=== PATIENT | male | born 1990 | race Caucasian/White ===

== ENCOUNTER → 2016-10-25 | Outpatient (REF) | payer OTHER ==
[2016-10-26 14:21] LABS: CONTROL LINE INT CTR LINE PRESENT; HIV SCRN NEGATIVE (NEGATIVE); HIV SCRN1 NEGATIVE (NEGATIVE)
== END ==
LOC: M SFHCLERA 13:58
PROVIDERS: ATTEND Family Medicine
DX: Z11.4 Encounter for screening for human immunodeficiency virus [HIV] (principal); Z11.3 Encounter for screening for infections with a predominantly sexual mode of transmission

== ENCOUNTER → 2016-11-13 | Outpatient (REF) | payer OTHER | LOC: M LAB REF 12:03 | PROVIDERS: ATTEND Physician Assistant Medical | DX: J02.9 Acute pharyngitis, unspecified (principal) ==

== ENCOUNTER 2017-03-02 19:51 | Emergency (ER) | payer OTHER ==
[~2017-03-02] VITALS: Ht 185.4 cm; Wt 140.0 kg
[2017-03-02] MEDS ORDERED: CITA20TA4 (20:10)
[2017-03-02] MEDS ORDERED: VALA1TAB (20:10)
[2017-03-02] MEDS ORDERED: NS 1,000 ML IV ONE (20:45)
[2017-03-02] MEDS ORDERED: KETOROLAC 30 MG/ML VIAL (J1885) IV ONE (20:45)
[2017-03-02] MEDS ORDERED: ONDANSETRON 4MG/2ML VIAL (J2405) IV ONE (21:00)
[2017-03-02 21:09] LABS: BASO % 0.2 % (0.0-1.0); EOS # 0.2 K/mm3 (0.0-0.50); EOS % 1.7 % (0.0-3.0); LARGE UNSTAINED CELL # 0.1 K/mm3 (0.0-0.4); LARGE UNSTAINED CELL % 0.6 % (0.0-4.0); LYMPH # 1.2 K/mm3 (1.5-6.5); MEAN CORPUSCULAR HEMOGLOBIN 31.5 pg (27.0-33.0); MEAN CORPUSCULAR HGB CONC 34.7 g/dl (32.0-36.5); MEAN CORPUSCULAR VOLUME 90.8 fl (80.0-96.0); MONO # 0.3 K/mm3 (0.0-0.8); MONO % 3.1 % (0.0-5.0); NEUTROPHILS # 8.8 K/mm3 (1.8-7.7); NEUTROPHILS % 83.4 % (36.0-66.0); PLATELET COUNT, AUTOMATED 224 k/mm3 (150-450); RED CELL DISTRIBUTION WIDTH 12.5 % (11.5-14.5); WHITE BLOOD COUNT 10.6 K/mm3 (4.0-10.0)
[2017-03-02] MEDS ORDERED: SIME1CAP5 PO (22:04)
[2017-03-02] MEDS ORDERED: ZOFR4TAB3 PO (22:04)
[2017-03-02 22:46] VITALS: BP 150/93
[2017-03-02 22:51] LABS: ALBUMIN 3.9 GM/DL (3.2-5.2); ALBUMIN/GLOBULIN RATIO 1.22 (1.00-1.93); ALKALINE PHOSPHATASE 104 U/L (45-117); ALT/SGPT 47 U/L (12-78); AMYLASE 21 U/L (25-115); ANION GAP 7 MEQ/L (8-16); AST/SGOT 21 U/L (15-37); BILIRUBIN,DIRECT 0.1 MG/DL (0.0-0.2); BILIRUBIN,TOTAL 0.5 MG/DL (0.2-1.0); BLOOD UREA NITROGEN 11 MG/DL (7-18); CALCIUM LEVEL 8.7 MG/DL (8.5-10.1); CARBON DIOXIDE LEVEL 27 MEQ/L (21-32); CHLORIDE LEVEL 107 MEQ/L (98-107); CREATININE FOR GFR 0.85 MG/DL (0.70-1.30); GLOMERULAR FILTRATION RATE > 60.0 (>60); GLUCOSE, FASTING 92 MG/DL (70-105); POTASSIUM SERUM 4.2 MEQ/L (3.5-5.1); SODIUM LEVEL 141 MEQ/L (136-145); TOTAL PROTEIN 7.1 GM/DL (6.4-8.2)
== END 2017-03-02 23:06 | disposition home or self-care (01) ==
LOC: M ED 20:34
DX: R10.84 Generalized abdominal pain (principal); R11.2 Nausea with vomiting, unspecified; K58.0 Irritable bowel syndrome with diarrhea; Z79.899 Other long term (current) drug therapy; Z88.0 Allergy status to penicillin; Z88.1 Allergy status to other antibiotic agents

== ENCOUNTER → 2017-04-10 | Outpatient (REF) | payer OTHER ==
[~2017-04-10] MED LIST: CITA20TA4; SIME1CAP5 PO; VALA1TAB2; ZOFR4TAB3 PO
[2017-04-10 21:01] LABS: BASO % 0.5 % (0.0-1.0); EOS # 0.2 K/mm3 (0.0-0.50); EOS % 2.1 % (0.0-3.0); LARGE UNSTAINED CELL # 0.1 K/mm3 (0.0-0.4); LARGE UNSTAINED CELL % 1.4 % (0.0-4.0); LYMPH # 1.6 K/mm3 (1.5-6.5); LYMPH % 21.8 % (24.0-44.0); MEAN CORPUSCULAR HGB CONC 35.5 g/dl (32.0-36.5); MONO # 0.4 K/mm3 (0.0-0.8); MONO % 5.6 % (0.0-5.0); NEUTROPHILS # 4.8 K/mm3 (1.8-7.7); NEUTROPHILS % 68.6 % (36.0-66.0); PLATELET COUNT, AUTOMATED 222 k/mm3 (150-450); RED CELL DISTRIBUTION WIDTH 12.4 % (11.5-14.5)
[2017-04-13 00:08] LABS: Lyme Disease IgG/IgM Antibodie <0.91 ISR (0.00-0.90); Lyme Disease IgM Ab Quantitati <0.80 index (0.00-0.79)
== END ==
LOC: M LABDRWAD 20:48 → M LAB REF 20:48
PROVIDERS: ATTEND Registered Nurse Psychiatric/Mental Health
DX: F41.1 Generalized anxiety disorder (principal)

== ENCOUNTER → 2017-04-16 | Outpatient (REF) | payer OTHER | LOC: M LABDRWAD 12:19 | PROVIDERS: ATTEND Registered Nurse Psychiatric/Mental Health | DX: F41.1 Generalized anxiety disorder (principal) ==

== ENCOUNTER → 2017-06-13 | Outpatient (REF) | payer OTHER ==
[2017-06-13 20:52] LABS: BASO % 0.2 % (0.0-1.0); EOS # 0.3 10^3/uL (0.0-0.50); EOS % 3.4 % (0.0-3.0); IMMATURE GRANULOCYTE % 0.4 % (0-0); LYMPH # 2.1 10^3/uL (1.5-6.5); LYMPH % 24.6 % (24.0-44.0); MEAN CORPUSCULAR HEMOGLOBIN 30.6 pg (27.0-33.0); MEAN CORPUSCULAR HGB CONC 33.6 g/dl (32.0-36.5); MEAN CORPUSCULAR VOLUME 91.1 fl (80.0-96.0); MONO # 0.6 10^3/uL (0.0-0.8); MONO % 7.7 % (0.0-5.0); NEUTROPHILS # 5.3 10^3/uL (1.8-7.7); NEUTROPHILS % 63.7 % (36.0-66.0); PLATELET COUNT, AUTOMATED 253 10^3/uL (150-450); RED CELL DISTRIBUTION WIDTH 12.1 % (11.5-14.5); WHITE BLOOD COUNT 8.3 10^3/uL (4.0-10.0)
[2017-06-13 20:58] LABS: ANION GAP 7 MEQ/L (8-16); BLOOD UREA NITROGEN 12 MG/DL (7-18); CALCIUM LEVEL 8.9 MG/DL (8.5-10.1); CARBON DIOXIDE LEVEL 30 MEQ/L (21-32); CHLORIDE LEVEL 102 MEQ/L (98-107); CREATININE FOR GFR 1.03 MG/DL (0.70-1.30); GLOMERULAR FILTRATION RATE > 60.0 (>60); GLUCOSE, FASTING 81 MG/DL (70-105); POTASSIUM SERUM 4.4 MEQ/L (3.5-5.1); SODIUM LEVEL 139 MEQ/L (136-145)
[2017-06-13 21:02] LABS: ADD MORPHOLOGY? NO
== END ==
LOC: M SFHCLERA 16:41
PROVIDERS: ATTEND Family Medicine
DX: R53.83 Other fatigue (principal)

== ENCOUNTER → 2017-07-26 | Outpatient (CLI) | payer OTHER ==
--- NOTE | 2017-07-26 18:25 | REP ---
PA LATERAL CHEST: 07/26/2017. Comparison: 06/08/2016. Clinical history: Chest pain, unspecified. Findings: Lung tate are adequately inflated. There is no effusion, infiltrate, atelectasis or mass. The heart, mediastinal and hilar contours are normal. Airway and aorta intact. No widening of the mediastinum. Bony thorax shows no focal lesion or compression deformity. No free air. Impression: 1. No acute cardiopulmonary disease. Signed by Greg Santos MD 07/29/2017 12:47 P
== END ==
LOC: M WUC 16:47
PROVIDERS: ATTEND Physician Assistant
DX: R07.9 Chest pain, unspecified (principal); R12 Heartburn

== ENCOUNTER → 2017-08-27 | Outpatient (CLI) | payer OTHER ==
[2017-08-27 19:58] LABS: BASO % 0.5 % (0.0-1.0); EOS # 0.2 10^3/uL (0.0-0.50); EOS % 3.1 % (0.0-3.0); IMMATURE GRANULOCYTE % 0.3 % (0-0); LYMPH # 1.9 10^3/uL (1.5-6.5); LYMPH % 29.2 % (24.0-44.0); MEAN CORPUSCULAR HEMOGLOBIN 30.3 pg (27.0-33.0); MEAN CORPUSCULAR HGB CONC 33.8 g/dl (32.0-36.5); MEAN CORPUSCULAR VOLUME 89.7 fl (80.0-96.0); MONO # 0.6 10^3/uL (0.0-0.8); MONO % 8.6 % (0.0-5.0); NEUTROPHILS # 3.7 10^3/uL (1.8-7.7); NEUTROPHILS % 58.3 % (36.0-66.0); PLATELET COUNT, AUTOMATED 242 10^3/uL (150-450); RED CELL DISTRIBUTION WIDTH 11.9 % (11.5-14.5); WHITE BLOOD COUNT 6.4 10^3/uL (4.0-10.0)
[2017-08-27 20:33] LABS: ALBUMIN 4.1 GM/DL (3.2-5.2); ALBUMIN/GLOBULIN RATIO 1.14 (1.00-1.93); ALKALINE PHOSPHATASE 109 U/L (45-117); ALT/SGPT 60 U/L (12-78); ANION GAP 7 MEQ/L (8-16); AST/SGOT 27 U/L (7-37); BILIRUBIN,TOTAL 0.3 MG/DL (0.2-1.0); BLOOD UREA NITROGEN 14 MG/DL (7-18); CALCIUM LEVEL 8.7 MG/DL (8.5-10.1); CARBON DIOXIDE LEVEL 28 MEQ/L (21-32); CHLORIDE LEVEL 105 MEQ/L (98-107); CREATININE FOR GFR 0.85 MG/DL (0.70-1.30); GLOMERULAR FILTRATION RATE > 60.0 (>60); GLUCOSE, FASTING 91 MG/DL (70-105); POTASSIUM SERUM 4.1 MEQ/L (3.5-5.1); SODIUM LEVEL 140 MEQ/L (136-145); TOTAL PROTEIN 7.7 GM/DL (6.4-8.2)
== END ==
LOC: M WUC 17:08
PROVIDERS: ATTEND Registered Nurse Psychiatric/Mental Health
DX: F41.1 Generalized anxiety disorder (principal)

== ENCOUNTER → 2017-10-07 | Outpatient (CLI) | payer OTHER | LOC: M RAD 12:29 | DX: J32.4 Chronic pansinusitis (principal) | CPT/HCPCS: 70486 ==

== ENCOUNTER → 2017-12-27 | Outpatient (REF) | payer OTHER | LOC: M SFHCLERA 16:52 | DX: R19.7 Diarrhea, unspecified (principal) | CPT/HCPCS: 87507 ==

== ENCOUNTER 2017-12-31 17:02 | Emergency (ER) | payer OTHER ==
[2017-12-31 18:19] LABS: BASO % 0.4 % (0.0-1.0); EOS # 0.2 10^3/uL (0.0-0.50); EOS % 3.2 % (0.0-3.0); HEMATOCRIT 46.2 % (42.0-52.0); HEMOGLOBIN 15.7 g/dl (13.5-17.5); IMMATURE GRANULOCYTE % 0.4 % (0-3.0); LYMPH # 2.2 10^3/uL (1.5-6.5); LYMPH % 28.6 % (24.0-44.0); MEAN CORPUSCULAR HEMOGLOBIN 30.3 pg (27.0-33.0); MEAN CORPUSCULAR VOLUME 89.2 fl (80.0-96.0); MONO # 0.5 10^3/uL (0.0-0.8); MONO % 7.2 % (0.0-5.0); NEUTROPHILS # 4.6 10^3/uL (1.8-7.7); NEUTROPHILS % 60.2 % (36.0-66.0); PLATELET COUNT, AUTOMATED 232 10^3/uL (150-450); RED BLOOD COUNT 5.18 10^6/uL (4.30-6.10); RED CELL DISTRIBUTION WIDTH 11.9 % (11.5-14.5); WHITE BLOOD COUNT 7.6 10^3/uL (4.0-10.0)
[2017-12-31 18:33] LABS: ALBUMIN 4.5 GM/DL (3.2-5.2); ALBUMIN/GLOBULIN RATIO 1.15 (1.00-1.93); ALKALINE PHOSPHATASE 122 U/L (45-117); ALT/SGPT 66 U/L (12-78); ANION GAP 5 MEQ/L (8-16); AST/SGOT 30 U/L (7-37); BILIRUBIN,DIRECT < 0.1 MG/DL (0.0-0.2); BILIRUBIN,TOTAL 0.3 MG/DL (0.2-1.0); BLOOD UREA NITROGEN 13 MG/DL (7-18); CALCIUM LEVEL 9.2 MG/DL (8.5-10.1); CARBON DIOXIDE LEVEL 31 MEQ/L (21-32); CHLORIDE LEVEL 105 MEQ/L (98-107); CREATININE FOR GFR 0.84 MG/DL (0.70-1.30); GLOMERULAR FILTRATION RATE > 60.0 (>60); GLUCOSE, FASTING 91 MG/DL (70-100); LIPASE 118 U/L (73-393); POTASSIUM SERUM 4.6 MEQ/L (3.5-5.1); SODIUM LEVEL 141 MEQ/L (136-145); TOTAL PROTEIN 8.4 GM/DL (6.4-8.2)
[2017-12-31] MEDS: NS 1,000 ML IV (18:48)
== END 2017-12-31 20:04 | disposition home or self-care (01) ==
LOC: M ED 17:02
DX: K82.9 Disease of gallbladder, unspecified (principal); R19.7 Diarrhea, unspecified; K76.0 Fatty (change of) liver, not elsewhere classified; K58.9 Irritable bowel syndrome, unspecified; Z79.899 Other long term (current) drug therapy; Z88.0 Allergy status to penicillin; Z88.8 Allergy status to other drugs, medicaments and biological substances
CPT/HCPCS: 76705

== ENCOUNTER 2018-02-18 07:22 | Day surgery (SDC) | payer OTHER ==
[2018-02-18] MEDS ORDERED: LR 1,000 ML IV ×3 (07:45→10:30)
[2018-02-18 08:13] LABS: ALBUMIN/GLOBULIN RATIO 0.95 (1.00-1.93); ALKALINE PHOSPHATASE 120 U/L (45-117); ALT/SGPT 61 U/L (12-78); ANION GAP 7 MEQ/L (8-16); AST/SGOT 27 U/L (7-37); BILIRUBIN,TOTAL 0.4 MG/DL (0.2-1.0); BLOOD UREA NITROGEN 13 MG/DL (7-18); CALCIUM LEVEL 9.1 MG/DL (8.5-10.1); CARBON DIOXIDE LEVEL 28 MEQ/L (21-32); CHLORIDE LEVEL 105 MEQ/L (98-107); CREATININE FOR GFR 0.93 MG/DL (0.70-1.30); GLOMERULAR FILTRATION RATE > 60.0 (>60); GLUCOSE, FASTING 90 MG/DL (70-100); POTASSIUM SERUM 4.5 MEQ/L (3.5-5.1); SODIUM LEVEL 140 MEQ/L (136-145); TOTAL PROTEIN 8.2 GM/DL (6.4-8.2)
[2018-02-18] MEDS ORDERED: MIDAZOLAM INJ 2 MG/2 ML VIAL (J2250) As Ordered (08:54)
[2018-02-18] MEDS ORDERED: PROPOFOL 200 MG/20 ML VIAL As Ordered (08:54)
[2018-02-18] MEDS ORDERED: fentaNYL 250 MCG/5 ML INJECTION (J3010) As Ordered (08:54)
[2018-02-18] MEDS ORDERED: LIDOCAINE 2% INJ 100 MG/5 ML SDV (FOR ANES.) As Ordered (08:54)
[2018-02-18] MEDS ORDERED: ROCURONIUM BROMIDE 50 MG/5 ML VIAL As Ordered ×2 (08:54→09:04)
[2018-02-18] MEDS: BUPIVACAINE/EPIN 0.5% 30 ML VIAL As Ordered (09:05)
[2018-02-18] MEDS ORDERED: dexameTHASONE 4 MG/ML 1ML VIAL (J1100) As Ordered ×2 (09:15)
[2018-02-18] MEDS ORDERED: ONDANSETRON 4MG/2ML VIAL (J2405) As Ordered (09:17)
[2018-02-18] MEDS ORDERED: fentaNYL 100 MCG/2 ML INJECTION (J3010) As Ordered (09:18)
[2018-02-18] MEDS ORDERED: KETOROLAC 60 MG/2 ML VIAL (J1885) As Ordered (09:19)
[2018-02-18] MEDS ORDERED: SUGAMMADEX SODIUM 500 MG/5 ML VIAL (BRIDION) As Ordered (09:44)
[2018-02-18] MEDS ORDERED: MORPHINE 2 MG/ML 1ML SYRINGE (J2270) IV (10:30)
[2018-02-18] MEDS ORDERED: KETOROLAC 30 MG/ML VIAL (J1885) IV (10:30)
[2018-02-18] MEDS ORDERED: fentaNYL 100 MCG/2 ML INJECTION (J3010) IV (10:30)
[2018-02-18] MEDS: HYDROMORPHONE HCL 0.5 MG/ 0.5 ML SYRINGE (J1170 PER 1) IV ×3 (10:30→10:50)
[2018-02-18] MEDS: PERCOCET 5MG/325MG TAB PO ×2 (10:30→11:05)
[2018-02-18] MEDS ORDERED: ONDANSETRON 4MG/2ML VIAL (J2405) IV ×2 (10:30)
[2018-02-18] MEDS ORDERED: NORCO, ANEXSIA 5/325MG TABLET (HYDROcodone/ACETAMINOPHEN) PO (10:30)
== END 2018-02-18 13:12 | disposition home or self-care (01) ==
LOC: M SDC 07:22
DX: K80.18 Calculus of gallbladder with other cholecystitis without obstruction (principal); K21.9 Gastro-esophageal reflux disease without esophagitis; Z79.899 Other long term (current) drug therapy; G47.30 Sleep apnea, unspecified; Z88.0 Allergy status to penicillin
CPT/HCPCS: 47562

== ENCOUNTER → 2018-04-04 | Outpatient (CLI) | payer OTHER | LOC: M SLEEP 19:43 | DX: G47.33 Obstructive sleep apnea (adult) (pediatric) (principal) | CPT/HCPCS: 95811 ==

== ENCOUNTER → 2018-04-10 | Outpatient (CLI) | payer OTHER | LOC: M LAB 09:25 | DX: R19.7 Diarrhea, unspecified (principal); R10.84 Generalized abdominal pain; R11.0 Nausea | CPT/HCPCS: 74021 ==

== ENCOUNTER → 2018-04-11 | Outpatient (CLI) | payer OTHER ==
[2018-04-14 14:16] LABS: CHROMOGRANIN A <1 nmol/L (0-5)
[2018-04-14 14:16] LABS: GASTRIN 13 pg/mL (0-115)
== END ==
LOC: M LAB 08:20
DX: R19.7 Diarrhea, unspecified (principal)
CPT/HCPCS: 82941

== ENCOUNTER → 2018-04-22 | Outpatient (CLI) | payer OTHER ==
[~2018-04-22] MED LIST changes: -CITA20TA4; +GASTROGRAFIN SOLUTION 30ML (Q9963) As Ordered; +ISOVUE-370 76% 100ML VIAL (Q9967) As Ordered; -SIME1CAP5 PO; -VALA1TAB2; -ZOFR4TAB3 PO
== END ==
LOC: M RAD 16:41
DX: R19.7 Diarrhea, unspecified (principal); R10.84 Generalized abdominal pain; R14.0 Abdominal distension (gaseous); K57.30 Diverticulosis of large intestine without perforation or abscess without bleeding; K76.0 Fatty (change of) liver, not elsewhere classified; Z90.49 Acquired absence of other specified parts of digestive tract
CPT/HCPCS: Q9963

== ENCOUNTER → 2018-04-24 | Outpatient (REF) | payer OTHER ==
[2018-04-24 11:56] LABS: BASO % 0.6 % (0.0-1.0); EOS # 0.2 10^3/uL (0.0-0.50); EOS % 2.8 % (0.0-3.0); HEMATOCRIT 44.3 % (42.0-52.0); HEMOGLOBIN 15.3 g/dl (13.5-17.5); IMMATURE GRANULOCYTE % 0.3 % (0-3.0); LYMPH % 28.3 % (24.0-44.0); MEAN CORPUSCULAR HEMOGLOBIN 30.8 pg (27.0-33.0); MEAN CORPUSCULAR HGB CONC 34.5 g/dl (32.0-36.5); MEAN CORPUSCULAR VOLUME 89.1 fl (80.0-96.0); MONO # 0.6 10^3/uL (0.0-0.8); MONO % 9.3 % (0.0-5.0); NEUTROPHILS # 4.1 10^3/uL (1.8-7.7); NEUTROPHILS % 58.7 % (36.0-66.0); PLATELET COUNT, AUTOMATED 228 10^3/uL (150-450); RED BLOOD COUNT 4.97 10^6/uL (4.30-6.10); RED CELL DISTRIBUTION WIDTH 11.9 % (11.5-14.5); WHITE BLOOD COUNT 6.9 10^3/uL (4.0-10.0)
[2018-04-24 13:22] LABS: FREE T4 0.97 NG/DL (0.76-1.46)
[2018-04-25 11:19] LABS: HIV 1&2 SCREEN CENTAUR NEGATIVE (NEGATIVE)
== END ==
LOC: M SFHCLERA 10:27
DX: R53.83 Other fatigue (principal); Z11.4 Encounter for screening for human immunodeficiency virus [HIV]

== ENCOUNTER 2018-05-28 10:48 | Day surgery (SDC) | payer OTHER ==
[~2018-05-28 10:48] MED LIST changes: -GASTROGRAFIN SOLUTION 30ML (Q9963) As Ordered; -ISOVUE-370 76% 100ML VIAL (Q9967) As Ordered; +LR 1,000 ML IV
[2018-05-28] MEDS ORDERED: MIDAZOLAM INJ 2 MG/2 ML VIAL (J2250) As Ordered ×2 (12:00→15:45)
[2018-05-28] MEDS ORDERED: PROPOFOL 200 MG/20 ML VIAL As Ordered (12:51)
[2018-05-28] MEDS ORDERED: ROCURONIUM BROMIDE 50 MG/5 ML VIAL As Ordered (12:51)
[2018-05-28] MEDS ORDERED: LIDOCAINE 2% INJ 100 MG/5 ML SDV (FOR ANES.) As Ordered (12:51)
[2018-05-28] MEDS ORDERED: fentaNYL 250 MCG/5 ML INJECTION (J3010) As Ordered (12:52)
[2018-05-28] MEDS: EPINEPHrine 1MG/ML INJ 30ML MD-VIAL As Ordered ×2 (14:36→15:18)
[2018-05-28] MEDS: METHYLENE BLUE 0.5% (5MG/ML) 10 ML AMP (PROVAYBLUE)(Q9968 PER 1MG) As Ordered (14:37)
[2018-05-28] MEDS ORDERED: dexameTHASONE 4 MG/ML 1ML VIAL (J1100) As Ordered ×2 (14:41)
[2018-05-28] MEDS ORDERED: ONDANSETRON 4MG/2ML VIAL (J2405) As Ordered ×2 (14:41→15:55)
[2018-05-28] MEDS ORDERED: GLYCOPYRROLATE INJ 0.2 MG/ML 2 ML VIAL As Ordered (14:41)
[2018-05-28] MEDS ORDERED: KETOROLAC 60 MG/2 ML VIAL (J1885) As Ordered (14:41)
[2018-05-28] MEDS ORDERED: NEOSTIGMINE 10 MG/10 ML VIAL (J2710) As Ordered (14:41)
[2018-05-28] MEDS ORDERED: HYDROmorphone HCL 2 MG/ML 1ML VIAL (J1170) As Ordered (14:42)
[2018-05-28] MEDS ORDERED: METOCLOPRAMIDE INJ 10MG/2ML VIAL (J2765) As Ordered (14:42)
[2018-05-28] MEDS: LIDOCAINE W/EPINEPHRINE 1% 20ML VIAL As Ordered (15:35)
[2018-05-28] MEDS ORDERED: LR 1,000 ML IV ×2 (16:00→16:30)
[2018-05-28] MEDS ORDERED: ACETAMINOPH W/CODEINE #3 TAB UD PO (16:00)
[2018-05-28] MEDS: ONDANSETRON 4MG/2ML VIAL (J2405) IV (16:10)
[2018-05-28] MEDS ORDERED: diphenhydrAMINE INJ 50MG/ML VIAL (J1200) As Ordered (16:13)
[2018-05-28] MEDS: diphenhydrAMINE INJ 50MG/ML VIAL (J1200) IV (16:25)
[2018-05-28] MEDS ORDERED: HYDROMORPHONE HCL 0.5 MG/ 0.5 ML SYRINGE (J1170 PER 1) IV (16:30)
[2018-05-28] MEDS ORDERED: fentaNYL 100 MCG/2 ML INJECTION (J3010) IV (16:30)
[2018-05-28] MEDS ORDERED: PERCOCET 5MG/325MG TAB PO (16:30)
== END 2018-05-28 18:55 | disposition home or self-care (01) ==
LOC: M SDC 18:55
DX: J32.8 Other chronic sinusitis (principal); K21.9 Gastro-esophageal reflux disease without esophagitis; K58.1 Irritable bowel syndrome with constipation; F41.9 Anxiety disorder, unspecified; F32.9 Major depressive disorder, single episode, unspecified; G47.33 Obstructive sleep apnea (adult) (pediatric); F31.9 Bipolar disorder, unspecified; T88.59XD Other complications of anesthesia, subsequent encounter; R42 Dizziness and giddiness; A60.00 Herpesviral infection of urogenital system, unspecified; R29.898 Other symptoms and signs involving the musculoskeletal system; R51 Headache; R06.83 Snoring; R53.83 Other fatigue; Z88.0 Allergy status to penicillin; Z88.1 Allergy status to other antibiotic agents; Z88.8 Allergy status to other drugs, medicaments and biological substances; Z79.899 Other long term (current) drug therapy
CPT/HCPCS: 31256

== ENCOUNTER → 2018-06-17 | Outpatient (REF) | payer OTHER | LOC: M SFHCLERA 17:39 | DX: J02.9 Acute pharyngitis, unspecified (principal) ==

== ENCOUNTER → 2018-08-13 | Outpatient (REF) | payer OTHER ==
[2018-08-13 19:16] LABS: BASO % 0.3 % (0.0-1.0); EOS # 0.2 10^3/uL (0.0-0.50); EOS % 3.3 % (0.0-3.0); HEMATOCRIT 46.1 % (42.0-52.0); HEMOGLOBIN 15.4 g/dl (13.5-17.5); IMMATURE GRANULOCYTE % 0.3 % (0-3.0); LYMPH # 1.8 10^3/uL (1.5-6.5); LYMPH % 25.4 % (24.0-44.0); MEAN CORPUSCULAR HEMOGLOBIN 30.7 pg (27.0-33.0); MEAN CORPUSCULAR HGB CONC 33.4 g/dl (32.0-36.5); MONO # 0.5 10^3/uL (0.0-0.8); MONO % 7.2 % (0.0-5.0); NEUTROPHILS # 4.6 10^3/uL (1.8-7.7); NEUTROPHILS % 63.5 % (36.0-66.0); PLATELET COUNT, AUTOMATED 250 10^3/uL (150-450); RED BLOOD COUNT 5.01 10^6/uL (4.30-6.10); RED CELL DISTRIBUTION WIDTH 12.1 % (11.5-14.5); WHITE BLOOD COUNT 7.3 10^3/uL (4.0-10.0)
[2018-08-13 19:22] LABS: ALBUMIN 4.2 GM/DL (3.2-5.2); ALBUMIN/GLOBULIN RATIO 1.14 (1.00-1.93); ALKALINE PHOSPHATASE 117 U/L (45-117); ALT/SGPT 64 U/L (12-78); ANION GAP 5 MEQ/L (8-16); AST/SGOT 24 U/L (7-37); BILIRUBIN,TOTAL 0.3 MG/DL (0.2-1.0); BLOOD UREA NITROGEN 19 MG/DL (7-18); CALCIUM LEVEL 9.1 MG/DL (8.5-10.1); CARBON DIOXIDE LEVEL 32 MEQ/L (21-32); CHLORIDE LEVEL 102 MEQ/L (98-107); CPK CREATINE PHOSPHOKINASE 185 U/L (39-308); CREATININE FOR GFR 0.96 MG/DL (0.70-1.30); GLOMERULAR FILTRATION RATE > 60.0 (>60); GLUCOSE, FASTING 96 MG/DL (70-100); POTASSIUM SERUM 4.2 MEQ/L (3.5-5.1); SODIUM LEVEL 139 MEQ/L (136-145); TOTAL PROTEIN 7.9 GM/DL (6.4-8.2)
[2018-08-13 19:26] LABS: CONTROL LINE MONO INT CTR LINE PRESENT; MONO SCRN NEGATIVE (NEGATIVE)
== END ==
LOC: M SFHCADAM 18:58
DX: M79.10 Myalgia, unspecified site (principal)
CPT/HCPCS: 82550

== ENCOUNTER → 2018-10-27 | Outpatient (REF) | payer OTHER ==
[~2018-10-27] MED LIST changes: +ADVI1CAP2 PO; +CITA20TA4; +FLUTISP; +LEXA1TAB; -LR 1,000 ML IV; +MECL-86 PO; +MONT10TA2; +RANI75TA15 PO; +SIME1CAP5 PO; +TYLE-45 PO; +VALA1TAB2; +ZOFR4TAB14 PO; +ZOLO50TA PO
[2018-10-27 19:42] LABS: INFLUENZA A AMPLIFICATION NEGATIVE (NEGATIVE); INFLUENZA B AMPLIFICATION NEGATIVE (NEGATIVE)
== END ==
LOC: M LAB REF 18:46
PROVIDERS: ATTEND Physician Assistant Medical
DX: J11.1 Influenza due to unidentified influenza virus with other respiratory manifestations (principal)

== ENCOUNTER → 2018-12-25 | Outpatient (REF) | payer OTHER ==
[~2018-12-25] MED LIST changes: -CITA20TA4; +CITA20TA6; +DULO1CAP2; +HYDR-3363; +RANI150T; +ZOFR4TAB16 PO
[2018-12-25 19:59] LABS: BASO % 0.5 % (0.0-1.0); EOS # 0.2 10^3/uL (0.0-0.50); EOS % 2.8 % (0.0-3.0); HEMATOCRIT 44.4 % (42.0-52.0); LYMPH # 1.9 10^3/uL (1.5-6.5); LYMPH % 22.2 % (24.0-44.0); MEAN CORPUSCULAR HEMOGLOBIN 30.1 pg (27.0-33.0); MEAN CORPUSCULAR HGB CONC 33.8 g/dl (32.0-36.5); MEAN CORPUSCULAR VOLUME 89.2 fl (80.0-96.0); MONO # 0.7 10^3/uL (0.0-0.8); MONO % 8.8 % (0.0-5.0); NEUTROPHILS # 5.4 10^3/uL (1.8-7.7); NEUTROPHILS % 65.3 % (36.0-66.0); PLATELET COUNT, AUTOMATED 246 10^3/uL (150-450); RED BLOOD COUNT 4.98 10^6/uL (4.30-6.10); WHITE BLOOD COUNT 8.3 10^3/uL (4.0-10.0)
[2018-12-25 20:35] LABS: ALBUMIN 4.4 GM/DL (3.2-5.2); ALT/SGPT 81 U/L (12-78); BILIRUBIN,TOTAL 0.3 MG/DL (0.2-1.0); BLOOD UREA NITROGEN 16 MG/DL (7-18); CARBON DIOXIDE LEVEL 29 MEQ/L (21-32); CHLORIDE LEVEL 104 MEQ/L (98-107); CREATININE FOR GFR 0.88 MG/DL (0.70-1.30); GLOMERULAR FILTRATION RATE > 60.0 (>60); GLUCOSE, FASTING 88 MG/DL (70-100); POTASSIUM SERUM 4.1 MEQ/L (3.5-5.1); SODIUM LEVEL 140 MEQ/L (136-145); TOTAL PROTEIN 8.1 GM/DL (6.4-8.2)
[2018-12-25 20:40] LABS: TOTAL 25(OH) VITAMIN D 14.7 NG/ML (30.0-100.0)
== END ==
LOC: M SFHCADAM 14:51
PROVIDERS: ATTEND Family Medicine
DX: Z13.21 Encounter for screening for nutritional disorder (principal); R53.83 Other fatigue

== ENCOUNTER → 2019-04-23 | Outpatient (CLI) | payer OTHER ==
[~2019-04-23] MED LIST changes: -DULO1CAP2; +DULO1CAP5
[2019-04-23 18:05] LABS: BASO % 0.4 % (0.0-1.0); EOS # 0.2 10^3/uL (0.0-0.50); EOS % 2.8 % (0.0-3.0); HEMATOCRIT 44.5 % (42.0-52.0); LYMPH # 2.2 10^3/uL (1.5-6.5); LYMPH % 27.7 % (24.0-44.0); MEAN CORPUSCULAR HEMOGLOBIN 30.5 pg (27.0-33.0); MEAN CORPUSCULAR HGB CONC 33.7 g/dl (32.0-36.5); MEAN CORPUSCULAR VOLUME 90.4 fl (80.0-96.0); MONO # 0.6 10^3/uL (0.0-0.8); MONO % 7.9 % (0.0-5.0); NEUTROPHILS # 4.9 10^3/uL (1.8-7.7); NEUTROPHILS % 61.1 % (36.0-66.0); PLATELET COUNT, AUTOMATED 231 10^3/uL (150-450); RED BLOOD COUNT 4.92 10^6/uL (4.30-6.10)
[2019-04-23 18:25] LABS: ALBUMIN 3.8 GM/DL (3.2-5.2); ALT/SGPT 74 U/L (12-78); BILIRUBIN,DIRECT < 0.1 MG/DL (0.0-0.2); BILIRUBIN,TOTAL 0.3 MG/DL (0.2-1.0); BLOOD UREA NITROGEN 14 MG/DL (7-18); CARBON DIOXIDE LEVEL 29 MEQ/L (21-32); CHLORIDE LEVEL 106 MEQ/L (98-107); CHOLESTEROL LEVEL 149 MG/DL (<200); CHOLESTEROL RISK RATIO 3.921 (<5); CREATININE FOR GFR 0.87 MG/DL (0.70-1.30); GLOMERULAR FILTRATION RATE > 60.0 (>60); GLUCOSE, FASTING 91 MG/DL (70-100); HDL CHOLESTEROL 38 MG/DL (>40); LDL CHOLESTEROL 48 MG/DL (<100); NON-HDL-C 111 MG/DL; POTASSIUM SERUM 4.1 MEQ/L (3.5-5.1); SODIUM LEVEL 141 MEQ/L (136-145); TOTAL 25(OH) VITAMIN D 26.7 NG/ML (30.0-100.0); TOTAL PROTEIN 7.5 GM/DL (6.4-8.2); TRIGLYCERIDES LEVEL 317 MG/DL (<150); VITAMIN B12 LEVEL 453 PG/ML (247-911)
--- NOTE | 2019-04-23 19:37 | ECGEPIP ---
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
== END ==
LOC: M LAB 16:32
PROVIDERS: ATTEND Nurse Practitioner Psychiatric/Mental Health
DX: Z51.81 Encounter for therapeutic drug level monitoring (principal); Z13.9 Encounter for screening, unspecified

== ENCOUNTER 2019-08-12 03:02 | Emergency (ER) | payer OTHER ==
[~2019-08-12] VITALS: Ht 185.4 cm; Wt 150.0 kg
[2019-08-12] MEDS ORDERED: BRIN1TAB PO (03:09)
[2019-08-12] MEDS ORDERED: LOPE-39 PO (03:09)
[2019-08-12] MEDS ORDERED: OMEP-218 PO (03:09)
[2019-08-12] MEDS ORDERED: NS 1,000 ML IV ONE (03:30)
[2019-08-12 03:57] LABS: BASO % 0.4 % (0.0-1.0); EOS # 0.1 10^3/uL (0.0-0.5); EOS % 1.2 % (0.0-3.0); HEMATOCRIT 46.9 % (42.0-52.0); HEMOGLOBIN 15.4 g/dl (13.5-17.5); LYMPH # 1.2 10^3/uL (1.5-5.0); LYMPH % 20.6 % (24.0-44.0); MEAN CORPUSCULAR HEMOGLOBIN 30.1 pg (27.0-33.0); MEAN CORPUSCULAR HGB CONC 32.8 g/dl (32.0-36.5); MEAN CORPUSCULAR VOLUME 91.8 fl (80.0-96.0); MONO % 18.2 % (0.0-5.0); NEUTROPHILS # 3.4 10^3/uL (1.5-8.5); NEUTROPHILS % 59.2 % (36.0-66.0); PLATELET COUNT, AUTOMATED 186 10^3/uL (150-450); RED BLOOD COUNT 5.11 10^6/uL (4.30-6.10); WHITE BLOOD COUNT 5.7 10^3/uL (4.0-10.0)
[2019-08-12 04:34] LABS: ALBUMIN 3.9 GM/DL (3.2-5.2); BILIRUBIN,DIRECT 0.1 MG/DL (0.0-0.2); BILIRUBIN,TOTAL 0.6 MG/DL (0.2-1.0); TOTAL PROTEIN 7.8 GM/DL (6.4-8.2)
[2019-08-12] MEDS ORDERED: GI COCKTAIL 50ML BTL(HYOSCYAMINE/MAALOX/LIDOCAINE VISCOUS)(1:3:1) PO ONE (05:15)
[2019-08-12] MEDS ORDERED: SUCRALFATE 1 GM TAB PO ONE (05:45)
[2019-08-12] MEDS ORDERED: FAMOTIDINE 20 MG TAB PO ONE (05:45)
[2019-08-12] MEDS ORDERED: CARA1TAB6 PO (05:47)
[2019-08-12] MEDS ORDERED: PEPC1TAB5 PO (05:47)
[2019-08-12 06:12] VITALS: BP 155/82
== END 2019-08-12 06:22 | disposition home or self-care (01) ==
LOC: M ED 03:02
DX: K52.9 Noninfective gastroenteritis and colitis, unspecified (principal); K21.9 Gastro-esophageal reflux disease without esophagitis; G47.33 Obstructive sleep apnea (adult) (pediatric); K58.9 Irritable bowel syndrome, unspecified; F41.1 Generalized anxiety disorder; B00.89 Other herpesviral infection; Z79.899 Other long term (current) drug therapy; Z88.0 Allergy status to penicillin; Z88.1 Allergy status to other antibiotic agents; Z88.8 Allergy status to other drugs, medicaments and biological substances

== ENCOUNTER → 2019-08-20 | Outpatient (CLI) | payer OTHER ==
[~2019-08-20] MED LIST changes: +BRIN1TAB PO; +CARA1TAB6 PO; +LOPE-39 PO; +OMEP-218 PO; +PEPC1TAB5 PO; -VALA1TAB2; +VALA1TAB64
[2019-08-20 10:25] LABS: BASO % 0.3 % (0.0-1.0); EOS # 0.2 10^3/uL (0.0-0.5); EOS % 2.8 % (0.0-3.0); HEMATOCRIT 47.5 % (42.0-52.0); HEMOGLOBIN 15.8 g/dl (13.5-17.5); LYMPH % 27.4 % (24.0-44.0); MEAN CORPUSCULAR HEMOGLOBIN 30.5 pg (27.0-33.0); MEAN CORPUSCULAR HGB CONC 33.3 g/dl (32.0-36.5); MEAN CORPUSCULAR VOLUME 91.7 fl (80.0-96.0); MONO # 0.5 10^3/uL (0.0-0.8); MONO % 7.4 % (0.0-5.0); NEUTROPHILS # 4.4 10^3/uL (1.5-8.5); NEUTROPHILS % 61.8 % (36.0-66.0); PLATELET COUNT, AUTOMATED 246 10^3/uL (150-450); RED BLOOD COUNT 5.18 10^6/uL (4.30-6.10); WHITE BLOOD COUNT 7.2 10^3/uL (4.0-10.0)
[2019-08-20 10:46] LABS: ALBUMIN 4.2 GM/DL (3.2-5.2); BILIRUBIN,DIRECT 0.1 MG/DL (0.0-0.2); BILIRUBIN,TOTAL 0.4 MG/DL (0.2-1.0); TOTAL PROTEIN 7.6 GM/DL (6.4-8.2)
== END ==
LOC: M WUC 09:28
PROVIDERS: ATTEND Physician Assistant Medical
DX: R10.10 Upper abdominal pain, unspecified (principal); R94.5 Abnormal results of liver function studies

== ENCOUNTER 2019-11-05 09:51 | Day surgery (SDC) | payer OTHER ==
[~2019-11-05] VITALS: Ht 185.4 cm; Wt 153.8 kg
[~2019-11-05 09:51] MED LIST changes: +LIDOCAINE 2% INJ 100 MG/5 ML SDV (FOR ANES.) As Ordered ONE; -MONT10TA2; +MONT10TA4; +VALA1TAB5; -VALA1TAB64
[2019-11-05] MEDS ORDERED: propofoL 200 MG/20 ML VIAL As Ordered ONE ×2 (10:04→11:04)
[2019-11-05] MEDS ORDERED: NS 1,000 ML IV ONE (10:30)
[2019-11-05] MEDS ORDERED: fentaNYL 100 MCG/2 ML INJECTION (J3010) As Ordered ONE (10:31)
--- NOTE | 2019-11-05 11:09 | ROOR ---
Patient Name: Chris Fajardo Procedure Date: 11/05/2019 10:53 AM Date of : 1990 Age: 29 Room: [facility] Gender: Male Note Status: Finalized Procedure: Upper GI endoscopy Indications: Dyspepsia, Heartburn Providers: Zaki ARMIJO MD Referring MD: Suzie CAMPBELL DO Requesting Provider: Medicines: Monitored Anesthesia Care Complications: No immediate complications. Procedure: Pre-Anesthesia Assessment: - The heart rate, respiratory rate, oxygen saturations, blood pressure, adequacy of pulmonary ventilation, and response to care were monitored throughout the procedure. The Endoscope was introduced through the mouth, and advanced to the second part of duodenum. The upper GI endoscopy was accomplished without difficulty. The patient tolerated the procedure well. Findings: Small Hiatal Hernia. The entire examined stomach was normal. The examined esophagus was normal. The examined duodenum was normal. Impression: - Small Hiatal Hernia. - Normal stomach. - Normal esophagus. - Normal examined duodenum. - No specimens collected. Recommendation: - Follow an antireflux regimen. - Continue present medications. - if necessary, you may try Gaviscon (over the counter) as directed as needed for breakthrough. Zaki Armijo MD Zaki ARMIJO MD 11/05/2019 11:09:09 AM Electronically signed by Zaki ARMIJO MD Number of Addenda: 0 Note Initiated On: 11/05/2019 10:53 AM Estimated Blood Loss: Estimated blood loss: none.
[2019-11-05 11:25] VITALS: BP 140/88
== END 2019-11-05 11:36 | disposition home or self-care (01) ==
LOC: M OPP 09:51
PROVIDERS: ATTEND Internal Medicine Gastroenterology
DX: K44.9 Diaphragmatic hernia without obstruction or gangrene (principal); R10.13 Epigastric pain; G47.30 Sleep apnea, unspecified; Z88.0 Allergy status to penicillin; Z88.1 Allergy status to other antibiotic agents; Z88.8 Allergy status to other drugs, medicaments and biological substances
CPT/HCPCS: 43235; J3010

== ENCOUNTER → 2020-02-11 | Outpatient (REF) | payer OTHER ==
[~2020-02-11] MED LIST changes: -LIDOCAINE 2% INJ 100 MG/5 ML SDV (FOR ANES.) As Ordered ONE
[2020-02-11 20:12] LABS: FREE T4 1.2 NG/DL (0.76-1.46); THYROID STIMULATING HORMONE 2.11 uIU/ML (0.358-3.740)
== END ==
LOC: M SFHCADAM 16:14
PROVIDERS: ATTEND Family Medicine
DX: F41.9 Anxiety disorder, unspecified (principal)

== ENCOUNTER → 2020-05-17 | Outpatient (CLI) | payer OTHER ==
--- NOTE | 2020-06-14 11:20 | REP ---
LEFT SHOULDER RADIOGRAPHS CLINICAL: Pain. TECHNIQUE: Internal rotation, external rotation, and Y view of the left shoulder. FINDINGS: Acromioclavicular and glenohumeral joints are intact and normal. Subacromial space is normal. No acute fracture or dislocation. No significant arthritic or degenerative changes. IMPRESSION: Normal left shoulder radiographs. MTDD
== END ==
LOC: M WUC 10:42
PROVIDERS: ATTEND Family Medicine
DX: M25.512 Pain in left shoulder (principal)

== ENCOUNTER → 2020-08-23 | Outpatient (CLI) | payer SELFPAY ==
[~2020-08-23] MED LIST changes: -MONT10TA4; +MONT5TAB2
== END ==
LOC: M LABSMTC 17:52
PROVIDERS: ATTEND Pediatrics
DX: Z11.59 Encounter for screening for other viral diseases (principal)

== ENCOUNTER → 2020-11-19 | Outpatient (CLI) | payer SELFPAY ==
[~2020-11-19] MED LIST changes: +MONT10TA10; -MONT5TAB2
== END ==
LOC: M LABSMTC 11:31
PROVIDERS: ATTEND Pediatrics
DX: Z20.822 Contact with and (suspected) exposure to COVID-19 (principal)

== ENCOUNTER → 2022-05-18 | Outpatient (REF) | payer OTHER ==
[~2022-05-18] MED LIST changes: -MONT10TA10; +MONT10TA97; +OMEP-173 PO; -OMEP-218 PO
== END ==
LOC: M SFHCADAM 13:42
PROVIDERS: ATTEND Physician Assistant
DX: R09.81 Nasal congestion (principal)

== ENCOUNTER → 2022-05-31 | Outpatient (REF) | payer OTHER | LOC: M SFHCADAM 16:30 | PROVIDERS: ATTEND Physician Assistant | DX: J02.9 Acute pharyngitis, unspecified (principal) ==

== ENCOUNTER → 2022-06-06 | Outpatient (REF) | payer OTHER ==
[2022-06-06 15:55] LABS: BASO % 0.3 % (0.0-1.0); EOS # 0.2 10^3/uL (0.0-0.5); EOS % 2.5 % (0.0-3.0); HEMATOCRIT 45.8 % (42.0-52.0); LYMPH # 2.2 10^3/uL (1.5-5.0); LYMPH % 29.9 % (24.0-44.0); MEAN CORPUSCULAR HEMOGLOBIN 30.1 pg (27.0-33.0); MEAN CORPUSCULAR HGB CONC 32.8 g/dl (32.0-36.5); MONO # 0.6 10^3/uL (0.0-0.8); MONO % 7.8 % (2.0-8.0); NEUTROPHILS # 4.3 10^3/uL (1.5-8.5); NEUTROPHILS % 59.4 % (36.0-66.0); PLATELET COUNT, AUTOMATED 239 10^3/uL (150-450); RED BLOOD COUNT 4.98 10^6/uL (4.30-6.10); WHITE BLOOD COUNT 7.2 10^3/uL (4.0-10.0)
[2022-06-06 16:22] LABS: ALBUMIN 4.2 GM/DL (3.2-5.2); ALT/SGPT 62 U/L (12-78); BILIRUBIN,TOTAL 0.5 MG/DL (0.2-1.0); BLOOD UREA NITROGEN 11 MG/DL (7-18); CALCIUM LEVEL 9.4 MG/DL (8.5-10.1); CARBON DIOXIDE LEVEL 29 MEQ/L (21-32); CHLORIDE LEVEL 104 MEQ/L (98-107); CREATININE FOR GFR 0.81 MG/DL (0.70-1.30); GLOMERULAR FILTRATION RATE > 60.0 (>60); GLUCOSE, FASTING 84 MG/DL (70-100); POTASSIUM SERUM 4.3 MEQ/L (3.5-5.1); SODIUM LEVEL 139 MEQ/L (136-145); TOTAL PROTEIN 7.8 GM/DL (6.4-8.2)
[2022-06-06 16:50] LABS: MONO REFLEX EBV COMP NEGATIVE (NEGATIVE)
== END ==
LOC: M SFHCADAM 14:24
PROVIDERS: ATTEND Physician Assistant
DX: J02.9 Acute pharyngitis, unspecified (principal)

== ENCOUNTER → 2023-03-05 | Outpatient (REF) | payer OTHER ==
[~2023-03-05] MED LIST changes: +FLUT50SP17; -FLUTISP
== END ==
LOC: M SFHCADAM 15:07
PROVIDERS: ATTEND Physician Assistant
DX: Z53.9 Procedure and treatment not carried out, unspecified reason (principal)

== ENCOUNTER → 2023-03-06 | Outpatient (CLI) | payer OTHER ==
[2023-03-06 10:19] LABS: BASO % 0.5 % (0.0-1.0); EOS # 0.2 10^3/uL (0.0-0.5); EOS % 3.1 % (0.0-3.0); HEMATOCRIT 45.8 % (42.0-52.0); HEMOGLOBIN 14.9 g/dl (13.5-17.5); LYMPH # 1.7 10^3/uL (1.5-5.0); LYMPH % 26.7 % (24.0-44.0); MEAN CORPUSCULAR HEMOGLOBIN 30.4 pg (27.0-33.0); MEAN CORPUSCULAR HGB CONC 32.5 g/dl (32.0-36.5); MEAN CORPUSCULAR VOLUME 93.5 fl (80.0-96.0); MONO # 0.5 10^3/uL (0.0-0.8); MONO % 7.8 % (2.0-8.0); NEUTROPHILS # 3.9 10^3/uL (1.5-8.5); NEUTROPHILS % 61.4 % (36.0-66.0); PLATELET COUNT, AUTOMATED 204 10^3/uL (150-450); WHITE BLOOD COUNT 6.4 10^3/uL (4.0-10.0)
[2023-03-06 10:38] LABS: HEMOGLOBIN A1c 4.7 % (4.0-6.0)
[2023-03-06 10:43] LABS: ALBUMIN 4.1 G/DL (3.2-5.2); ALKALINE PHOSPHATASE 102 U/L (46-116); ALT/SGPT 60 U/L (7.0-40); AST/SGOT 25 U/L (<34); BILIRUBIN,TOTAL 0.7 MG/DL (0.3-1.2); BLOOD UREA NITROGEN 15 MG/DL (9-23); CALCIUM LEVEL 8.8 MG/DL (8.5-10.1); CARBON DIOXIDE LEVEL 30 MMOL/L (20-31); CHLORIDE LEVEL 103 MMOL/L (98-107); CHOLESTEROL LEVEL 155 MG/DL (<200); CHOLESTEROL RISK RATIO 3.69 (<5); CREATININE FOR GFR 0.85 MG/DL (0.70-1.30); GLOMERULAR FILTRATION RATE > 60.0 (>60); GLUCOSE, FASTING 78 MG/DL (60-100); POTASSIUM SERUM 4.7 MMOL/L (3.5-5.1); SODIUM LEVEL 140 MMOL/L (136-145); TOTAL PROTEIN 7.1 G/DL (5.7-8.2); TRIGLYCERIDES LEVEL 170 MG/DL (<150)
== END ==
LOC: M WUC 08:43
PROVIDERS: ATTEND Physician Assistant
DX: K21.9 Gastro-esophageal reflux disease without esophagitis (principal); Z68.41 Body mass index [BMI] 40.0-44.9, adult

== ENCOUNTER 2023-08-12 13:01 | Day surgery (SDC) | payer OTHER ==
[~2023-08-12] VITALS: Ht 177.8 cm; Wt 146.2 kg
[~2023-08-12 13:01] MED LIST changes: +CLAR10CA3 PO; +FAMO20TA PO; +LEXA1TAB PO; +NS 1,000 ML IV ONE
[2023-08-12] MEDS ORDERED: propofoL 200 MG/20 ML VIAL As Ordered ONE ×2 (13:16→13:17)
[2023-08-12] MEDS ORDERED: LIDOCAINE 2% 100MG/5ML SDV (FOR ANES.) As Ordered ONE (13:17)
[2023-08-12] MEDS ORDERED: fentaNYL 100 MCG/2 ML INJECTION As Ordered ONE (14:04)
[2023-08-12 14:35] VITALS: TEMP 96.8
[2023-08-12 14:48] VITALS: BP 127/78; O2SAT 95
== END 2023-08-12 15:10 | disposition home or self-care (01) ==
LOC: M OPP 13:01
PROVIDERS: ATTEND Internal Medicine Gastroenterology
DX: R10.13 Epigastric pain (principal); K31.89 Other diseases of stomach and duodenum; G47.30 Sleep apnea, unspecified; F41.9 Anxiety disorder, unspecified; F32.A Depression, unspecified; Z99.89 Dependence on other enabling machines and devices; Z88.0 Allergy status to penicillin; Z88.8 Allergy status to other drugs, medicaments and biological substances; Z79.899 Other long term (current) drug therapy
CPT/HCPCS: 43239; 88305; J3010

== ENCOUNTER → 2023-10-22 | Outpatient (CLI) | payer OTHER ==
[~2023-10-22] MED LIST changes: -FLUT50SP17; +FLUTISP; -NS 1,000 ML IV ONE
[2023-10-22 16:00] LABS: ALBUMIN 4.1 G/DL (3.2-5.2); BILIRUBIN,DIRECT 0.2 MG/DL (<0.4); BILIRUBIN,TOTAL 0.4 MG/DL (0.3-1.2); TOTAL PROTEIN 7.4 G/DL (5.7-8.2)
== END ==
LOC: M WUC 09:59
PROVIDERS: ATTEND Physician Assistant
DX: R74.8 Abnormal levels of other serum enzymes (principal)

== ENCOUNTER → 2023-10-28 | Outpatient (CLI) | payer OTHER | LOC: M RAD 09:03 | PROVIDERS: ATTEND Physician Assistant | DX: R79.89 Other specified abnormal findings of blood chemistry (principal); R16.0 Hepatomegaly, not elsewhere classified; K76.0 Fatty (change of) liver, not elsewhere classified ==

== ENCOUNTER → 2023-10-30 | Outpatient (REF) | payer OTHER ==
[2023-10-30 18:20] LABS: IRON (FE) 75 UG/DL (65-175); PERCENT SATURATION 25.5 % (19.7-50.0); TOTAL IRON BINDING CAPACITY 294 UG/DL (250-425)
[2023-10-30 18:23] LABS: FERRITIN 44.8 NG/ML (10.5-307.3)
[2023-10-30 18:55] LABS: HEPATITIS C VIRUS ABY INDEX 0.03 INDEX (<0.8)
[2023-10-30 18:56] LABS: HEPATITIS B CORE ANTIBODY IGM NEGATIVE (NEGATIVE)
== END ==
LOC: M LAB REF 17:23 → M LABWUC 17:23
PROVIDERS: ATTEND Physician Assistant Medical
DX: R16.0 Hepatomegaly, not elsewhere classified (principal)

== ENCOUNTER → 2023-11-06 | Outpatient (REF) | payer OTHER | LOC: M SFHCADAM 12:30 | PROVIDERS: ATTEND Physician Assistant | DX: J06.9 Acute upper respiratory infection, unspecified (principal) ==

== ENCOUNTER → 2023-12-30 | Outpatient (CLI) | payer OTHER ==
[2023-12-30 11:24] LABS: BASO % 0.4 % (0.0-1.0); EOS # 0.2 10^3/uL (0.0-0.5); EOS % 3.4 % (0.0-3.0); HEMATOCRIT 44.6 % (42.0-52.0); LYMPH # 1.5 10^3/uL (1.5-5.0); LYMPH % 26.3 % (24.0-44.0); MEAN CORPUSCULAR HEMOGLOBIN 31.5 pg (27.0-33.0); MEAN CORPUSCULAR HGB CONC 33.6 g/dl (32.0-36.5); MEAN CORPUSCULAR VOLUME 93.7 fl (80.0-96.0); MONO # 0.4 10^3/uL (0.0-0.8); MONO % 7.2 % (2.0-8.0); NEUTROPHILS # 3.5 10^3/uL (1.5-8.5); NEUTROPHILS % 62.3 % (36.0-66.0); PLATELET COUNT, AUTOMATED 210 10^3/uL (150-450); RED BLOOD COUNT 4.76 10^6/uL (4.30-6.10); WHITE BLOOD COUNT 5.6 10^3/uL (4.0-10.0)
[2023-12-30 11:40] LABS: HEMOGLOBIN A1c 4.6 % (4.0-6.0)
[2023-12-30 11:52] LABS: ALBUMIN 3.9 G/DL (3.2-5.2); ALKALINE PHOSPHATASE 117 U/L (46-116); ALT/SGPT 66 U/L (7.0-40); AST/SGOT 29 U/L (<34); BILIRUBIN,TOTAL 0.4 MG/DL (0.3-1.2); BLOOD UREA NITROGEN 12 MG/DL (9-23); CALCIUM LEVEL 9.1 MG/DL (8.5-10.1); CARBON DIOXIDE LEVEL 31 MMOL/L (20-31); CHLORIDE LEVEL 104 MMOL/L (98-107); CHOLESTEROL LEVEL 148 MG/DL (<200); CHOLESTEROL RISK RATIO 3.63 (<5); CREATININE FOR GFR 0.84 MG/DL (0.70-1.30); FERRITIN 41.4 NG/ML (10.5-307.3); GLOMERULAR FILTRATION RATE > 60.0 (>60); GLUCOSE, FASTING 93 MG/DL (60-100); HDL CHOLESTEROL 40.7 MG/DL (>40); LDL CHOLESTEROL 62.9 MG/DL (<100); NON-HDL-C 107.3 MG/DL; POTASSIUM SERUM 4.4 MMOL/L (3.5-5.1); SODIUM LEVEL 138 MMOL/L (136-145); THYROID STIMULATING HORMONE 2.648 uIU/ML (0.55-4.78); TOTAL PROTEIN 7.2 G/DL (5.7-8.2); TRIGLYCERIDES LEVEL 222 MG/DL (<150)
[2023-12-30 11:53] LABS: TOTAL 25(OH) VITAMIN D 10.8 NG/ML (20.0-100.0)
[2023-12-30 11:54] LABS: FOLATE > 24.00 NG/ML (>5.4); VITAMIN B12 LEVEL 508 PG/ML (211-911)
== END ==
LOC: M PLALAB 08:21
PROVIDERS: ATTEND Surgery
DX: E66.01 Morbid (severe) obesity due to excess calories (principal)

== ENCOUNTER → 2024-01-22 | Outpatient (REF) | payer OTHER | LOC: M SFHCWAGY 12:12 | PROVIDERS: ATTEND Physician Assistant | DX: J00 Acute nasopharyngitis [common cold] (principal) ==

== ENCOUNTER → 2024-02-13 | Outpatient (CLI) | payer OTHER | LOC: M RAD 14:57 | PROVIDERS: ATTEND Physician Assistant | DX: R22.1 Localized swelling, mass and lump, neck (principal) ==

== ENCOUNTER → 2024-08-06 | Outpatient (REF) | payer OTHER | LOC: M SFHCPLAZ 13:11 | PROVIDERS: ATTEND Physician Assistant | DX: J01.00 Acute maxillary sinusitis, unspecified (principal) ==